=== PATIENT | female | born 1985 | race Hispanic/Latino ===

== ENCOUNTER 2019-04-22 00:48 | Emergency (ER) | payer OTHER ==
--- OUTSIDE RECORDS SUMMARY | 2019-04-22 00:51 | XMS REPORT ---
:1985 [facility] Address [address] [place] [address] Dr. Dixon [address] [place] [id number] Care Team Providers Name Role Phone Unavailable Unavailable Unavailable Problems This patient has no known problems. Allergies, Adverse Reactions, Alerts This patient has no known allergies or adverse reactions. Medications This patient has no known medications.
[2019-04-22 02:47] LABS: Urine Blood 3+ (NEG); Urine Glucose NEGATIVE (NEG); Urine Protein 2+ (NEG)
[2019-04-22 02:50] LABS: Absolute Lymphocytes (CBC) 2.6 K/uL (0.7-4.9); Basophils % 0.4 % (0-1.3); Hematocrit 41.2 % (36.0-45.0); Lymphocytes % 22.5 % (15.3-44.8); RBC Red Blood Cell Count 4.68 M/uL (3.86-4.86)
[2019-04-22 03:25] LABS: BUN Blood Urea Nitrogen 11 mg/dL (7-18); Bicarbonate 26 mmol/L (21-32); Glucose Level 104 mg/dL (74-106); HCG, Quantitative 6920 mIU/mL (1-3); Potassium 3.7 mmol/L (3.5-5.1); Sodium Level 141 mmol/L (136-145)
--- NOTE | 2019-04-22 04:30 | ER ---
Nurse's Notes [facility] Name: Carmina Terry Age: 34 yrs Sex: Female : 1985 Arrival Date: 04/22/2019 Time: 00:51 Bed 19 Private MD: Diagnosis: Threatened . 1 st trimester Presentation: 04/22 01:10 Presenting complaint: Patient states: "Since 4 days I've been having spotting, then cc3 just tonight I started to have dark red clots and back pain". Transition of care: patient was not received from another setting of care. Onset of symptoms was April 22, 2019. Risk Assessment: Do you want to hurt yourself or someone else? Patient reports no desire to harm self or others. Initial Sepsis Screen: Does the patient meet any 2 criteria? No. Patient's initial sepsis screen is negative. Does the patient have a suspected source of infection? No. Patient's initial sepsis screen is negative. Care prior to arrival: None. 01:10 Method Of Arrival: Ambulatory cc3 01:10 Acuity: ANGELA 3 cc3 Triage Assessment: 01:10 General: Appears in no apparent distress. uncomfortable, Behavior is calm, cooperative, cc3 appropriate for age. Pain: Complains of pain in lower abdomen and back Pain currently is 6 out of 10 on a pain scale. Quality of pain is described as aching. EENT: No signs and/or symptoms were reported regarding the EENT system. Neuro: Level of Consciousness is awake, alert, obeys commands, Oriented to person, place, time, situation, Appropriate for age. Cardiovascular: Denies chest pain, Capillary refill < 3 seconds Patient's skin is warm and dry. Respiratory: Airway is patent Respiratory effort is even, unlabored, Respiratory pattern is regular, symmetrical. GI: Abdomen is round. : Reports vaginal bleeding that is bright red, with clots. Derm: Skin is intact, is healthy with good turgor, Skin is pink, warm \\T\\ dry. normal. Musculoskeletal: Circulation, motion, and sensation intact. Range of motion: intact in all extremities. 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 - Social history:: Smoking status: Patient/guardian denies using tobacco, never smoked. - Ebola Screening: : No symptoms or risks identified at this time. Screenin:10 Abuse screen: Denies threats or abuse. Denies injuries from another. Nutritional cc3 screening: No deficits noted. Tuberculosis screening: No symptoms or risk factors identified. Fall Risk Ambulatory Aid- None/Bed Rest/Nurse Assist (0 pts). Gait- Normal/Bed Rest/Wheelchair (0 pts) Mental Status- Oriented to own ability (0 pts). Assessment: 01:10 General: see triage assessment. cc3 02:18 Reassessment: Patient appears in no apparent distress at this time. Patient and/or cc3 family updated on plan of care and expected duration. Pain level reassessed. Patient is alert, oriented x 3, equal unlabored respirations, skin warm/dry/pink. 03:20 Reassessment: Patient appears in no apparent distress at this time. Patient and/or cc3 family updated on plan of care and expected duration. Pain level reassessed. Patient is alert, oriented x 3, equal unlabored respirations, skin warm/dry/pink. 04:30 Reassessment: Patient appears in no apparent distress at this time. Patient and/or cc3 family updated on plan of care and expected duration. Pain level reassessed. Patient is alert, oriented x 3, equal unlabored respirations, skin warm/dry/pink. Dr. Mcintosh discharged the patient home, no prescription given. IV cannula removed and patient left ER vitally stable and ambulatory with her . No valuables left in the patient's room. Patient denies pain at this time. Patient states feeling better. Patient states symptoms have improved. Vital Signs: 01:10 BP 148 / 87; Pulse 73; Resp 17 S; Temp 98.7(O); Pulse Ox 99% on R/A; Weight 57.15 kg cc3 (R); Height 5 ft. 2 in. (157.48 cm) (R); Pain 6/10; 02:25 BP 138 / 83; Pulse 75; Resp 16 S; Pulse Ox 99% on R/A; cc3 03:13 BP 135 / 79; Pulse 77; Resp 16 S; Pulse Ox 98% on R/A; cc3 04:18 BP 136 / 82; Pulse 71; Resp 17 S; Pulse Ox 99% on R/A; cc3 01:10 Body Mass Index 23.05 (57.15 kg, 157.48 cm) cc3 ED Course: 00:51 Patient arrived in ED. cf2 01:10 Arm band placed on right wrist. Patient notified of wait time. cc3 01:10 Patient has correct armband on for positive identification. Placed in gown. Bed in low cc3 position. Call light in reach. Side rails up X 1. Pulse ox on. NIBP on. 01:57 Deanna Servin is Primary Nurse. cc3 02:02 Abraham Mcintosh MD is Attending Physician. pkl 02:11 Triage completed. cc3 02:35 Inserted saline lock: 20 gauge in left antecubital area, using aseptic technique. Blood cc3 collected. 04:00 Assist provider with pelvic exam: Set up pelvic tray. Performed by Abraham Mcintosh MD Patient cc3 tolerated well. 04:26 Zafar Juan MD is Referral Physician. pkl 04:30 IV discontinued, intact, bleeding controlled, No redness/swelling at site. Pressure cc3 dressing applied. Administered Medications: No medications were administered Outcome: 04:27 Discharge ordered by . pkl 04:30 Discharged to home ambulatory, with family. cc3 04:30 Condition: stable 04:30 Discharge instructions given to patient, Instructed on discharge instructions, follow up and referral plans. Demonstrated understanding of instructions, follow-up care. 04:34 Patient left the ED. cc3 Signatures: Abraham Mcintosh MD MD pkl Deanna Servin cc3 David Braswell cf2
--- NOTE | 2019-04-22 04:31 | EDPHYS ---
Physician Documentation [facility] Name: Carmina Terry Age: 34 yrs Sex: Female : 1985 Arrival Date: 04/22/2019 Time: 00:51 Bed 19 Private MD: ED Physician Abraham Mcintosh HPI: 04/22 04:18 This 34 yrs old Female presents to ER via Ambulatory with complaints of pkl Vaginal Bleeding, Back Pain, blood when urinating. 04:18 The patient presents with vaginal bleeding that is moderate. Onset: The pkl symptoms/episode began/occurred just prior to arrival. Patient saw Dr. Juan last Sunday for vaginal spotting. Had pelvic US done in Dr. Juan office, showed 7 weeks IUP. 04:18 Tonight patient said passing some blood clots.. 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 - Social history:: Smoking status: Patient/guardian denies using tobacco, never smoked. - Ebola Screening: : No symptoms or risks identified at this time. ROS: 04:18 Positive for vaginal bleeding. pkl 04:18 Eyes: Negative for injury, pain, redness, and discharge, ENT: Negative for injury, pain, and discharge, Neck: Negative for injury, pain, and swelling, Cardiovascular: Negative for chest pain, palpitations, and edema, Respiratory: Negative for shortness of breath, cough, wheezing, and pleuritic chest pain, Abdomen/GI: Negative for abdominal pain, nausea, vomiting, diarrhea, and constipation, Back: Negative for injury and pain, MS/Extremity: Negative for injury and deformity, Skin: Negative for injury, rash, and discoloration, Neuro: Negative for headache, weakness, numbness, tingling, and seizure. Exam: 04:18 Head/Face: Normocephalic, atraumatic. Eyes: Pupils equal round and reactive to light, pkl extra-ocular motions intact. Lids and lashes normal. Conjunctiva and sclera are non-icteric and not injected. Cornea within normal limits. Periorbital areas with no swelling, redness, or edema. ENT: Nares patent. No nasal discharge, no septal abnormalities noted. Tympanic membranes are normal and external auditory canals are clear. Oropharynx with no redness, swelling, or masses, exudates, or evidence of obstruction, uvula midline. Mucous membranes moist. Neck: Trachea midline, no thyromegaly or masses palpated, and no cervical lymphadenopathy. Supple, full range of motion without nuchal rigidity, or vertebral point tenderness. No Meningismus. Chest/axilla: Normal chest wall appearance and motion. Nontender with no deformity. No lesions are appreciated. Cardiovascular: Regular rate and rhythm with a normal S1 and S2. No gallops, murmurs, or rubs. Normal PMI, no JVD. No pulse deficits. Respiratory: Lungs have equal breath sounds bilaterally, clear to auscultation and percussion. No rales, rhonchi or wheezes noted. No increased work of breathing, no retractions or nasal flaring. Abdomen/GI: Soft, non-tender, with normal bowel sounds. No distension or tympany. No guarding or rebound. No evidence of tenderness throughout. Back: No spinal tenderness. No costovertebral tenderness. Full range of motion. 04:18 : Pelvic Exam: Speculum exam: mild bleeding, os that is closed, a female trim sawyer was present for the exam. 04:18 Musculoskeletal/extremity: Exam is negative for acute changes. 04:18 Skin: Exam negative for rash. 04:18 Neuro: Orientation: is normal, Mentation: is normal, Cranial nerves: grossly normal, Motor: is normal, Gait: is steady. Vital Signs: 01:10 BP 148 / 87; Pulse 73; Resp 17 S; Temp 98.7(O); Pulse Ox 99% on R/A; Weight 57.15 kg cc3 (R); Height 5 ft. 2 in. (157.48 cm) (R); Pain 6/10; 02:25 BP 138 / 83; Pulse 75; Resp 16 S; Pulse Ox 99% on R/A; cc3 03:13 BP 135 / 79; Pulse 77; Resp 16 S; Pulse Ox 98% on R/A; cc3 04:18 BP 136 / 82; Pulse 71; Resp 17 S; Pulse Ox 99% on R/A; cc3 01:10 Body Mass Index 23.05 (57.15 kg, 157.48 cm) cc3 MDM: 02:02 Patient medically screened. pkl 04:18 Data reviewed: vital signs, nurses notes, lab test result(s). pkl 04/22 02:23 Order name: CBC with Diff pkl 04/22 02:23 Order name: Chem 7; Complete Time: 04:34 pkl 04/22 02:23 Order name: Rh Typing; Complete Time: 03:11 pkl 04/22 02:23 Order name: Quantitative Hcg; Complete Time: 04:34 pkl 04/22 02:29 Order name: Urine Dipstick--Ancillary (enter results); Complete Time: 02:50 ag4 04/22 02:29 Order name: Urine --Ancillary (enter results); Complete Time: 02:50 ag4 Administered Medications: No medications were administered Disposition: 04/22/19 04:27 Discharged to Home. Impression: Threatened . 1 st trimester . - Condition is Stable. - Work release form, Medication Reconciliation Form, Thank You Letter, Antibiotic Education, Prescription Opioid Use form. - Follow up: Zafar Juan MD; When: Today; Reason: Re-evaluation by your physician. - Problem is new. - Symptoms have improved. Signatures: Dispatcher [employer] EDAbraham Christie MD MD pkDeanna Raymond cc3 Corrections: (The following items were deleted from the chart) 04:34 04:27 04/22/2019 04:27 Discharged to Home. Impression: Threatened . 1 st cc3 trimester . Condition is Stable. Forms are Medication Reconciliation Form, Thank You Letter, Antibiotic Education, Prescription Opioid Use. Follow up: Zafar Juan; When: Today; Reason: Re-evaluation by your physician. Problem is new. Symptoms have improved. pkl
== END 2019-04-22 04:34 | disposition home or self-care (01) ==
LOC: ER 00:48
DX: O20.0 Threatened abortion (principal); Z3A.01 Less than 8 weeks gestation of pregnancy
CPT/HCPCS: 36415; 80048; 81003; 81025; 84702; 85025; 86901; 99284

== ENCOUNTER 2020-09-08 11:20 | Inpatient (IN) | payer OTHER ==
[2020-09-08] MEDS ORDERED: Ringers Lactate 1,000 ML IV PRN (15:12)
[2020-09-08] MEDS ORDERED: miSOPROStoL 100 MCG TAB VAG PRN (15:16)
[2020-09-08] MEDS ORDERED: BUTORPHANOL 1 MG/ML INJ IV PRN (15:21)
[2020-09-08] MEDS ORDERED: PROMETHAZINE INJ 25 MG/ML AMP IM PRN (15:21)
[2020-09-08] MEDS ORDERED: ZOLPIDEM TARTRATE 10 MG TABLET PO PRN (15:21)
--- OUTSIDE RECORDS SUMMARY | 2020-09-08 15:23 | XMS REPORT | Continuity of Care Document ---
:1985 Author Organization [facility] t Address [address] [place] [address] Dr. Dixon [address] [place] [address] Care Team Providers Name Role Phone Jayy BURGOS Attending Clinician Doctor Unassigned, Name Attending Clinician Unavailable Mario PONCE Attending Clinician Problems This patient has no known problems. Allergies, Adverse Reactions, Alerts This patient has no known allergies or adverse reactions. Medications This patient has no known medications. Procedures This patient has no known procedures. Encounters Start End Encounter Admission Attending Care Care Encounter Source Date/Time Date/Time Type Type Clinicians Facility Department ID 2020-06-11 2020-06-11 [id number] 12:08:00 14:37:00 [place] [facility] [id number] [place] [id number] [place] [id number] 2020-06-11 2020-06-11 Orders Doctor MICHAEL [id number] 00:00:00 00:00:00 Only UnassignedCATRACHO [id number] [place] [facility] [id number] 2019-04-15 2019-04-15 [facility] [id number] 00:00:00 00:00:00 Management Elizabeth Sheppard [id number] [place] [id number] [place] [id number] [address] 2019-04-03 2019-04-03 Orders Doctor MICHAEL [id number] 00:00:00 00:00:00 Only Unassigned, [place] [id number] [place] [facility] [id number] 2019-03-21 2019-03-[address] [facility] [id number] 09:12:43 10:17:57 Elizabeth Sheppard [id number] Visit [place] [id number] [facility] [id number] [address] 2019-03-21 2019-03-21 Telephone [facility] [id number] 00:00:00 00:00:00 Elizabeth Sheppard [id number] [place] [id number] [facility] [id number] [address] Results This patient has no known results.
[2020-09-08] MEDS ORDERED: miSOPROStoL 100 MCG TAB ONE (15:44)
[2020-09-08] MEDS ORDERED: Ringers Lactate 1,000 ML IV ONE (15:44)
[2020-09-08] MEDS ORDERED: OXYTOCIN/LR 20 UNIT/1,000 ML BAG IV SCH (16:00)
[2020-09-08] MEDS ORDERED: Ringers Lactate 1,000 ML IV SCH (16:00)
--- NOTE | 2020-09-08 16:30 | RAD REPORT ---
EXAM DESCRIPTION: US - OB Limited - 09/08/2020 4:24 pm CLINICAL HISTORY: check position COMPARISON: OB Complete dated 04/29/2020 FINDINGS: A limited examination was requested by the referring physician. A single cephalic presenti ng gestation is identified.
[2020-09-08 16:46] VITALS: BMI 29.4
[2020-09-08 16:54] LABS: Absolute Lymphocytes (CBC) 2.2 K/uL (0.7-4.9); Basophils % 0.6 % (0-1.3); Hematocrit 37.1 % (36.0-45.0); Lymphocytes % 25.9 % (15.3-44.8); MPV 10.1 fL (7.6-11.3); RBC Red Blood Cell Count 4.25 M/uL (3.86-4.86)
[2020-09-08 16:55] LABS: Urine Appearance CLEAR; Urine Bilirubin NEGATIVE (NEG); Urine Blood TRACE (NEG); Urine Color YELLOW; Urine Glucose NEGATIVE (NEG); Urine Protein TRACE (NEG); Urine Specific Gravity <=1.005 (1.005-1.030); Urine Urobilinogen 0.2 mg/dL (0.2-1.0)
[2020-09-08 17:01] LABS: Urine Microscopic Reflex ORDER UMIC
[2020-09-08 17:20] LABS: Urine Bacteria <20 /HPF (<20); Urine RBC <5 /HPF (NONE SEEN)
--- NOTE | 2020-09-08 18:03 | PREOPHP ---
Date of Admission: 09/08/2020 History Of Present Illness: A 35-year-old, 2, para 0, now at 39 weeks 2 days, followed antep artum and noted to have blood pressure elevation, but preeclamptic workup x2 has been negative for pr otein. She has no edema. She has no LINOLEUM INSTALLER symptoms. Nonetheless, we will watch her blood pressures c arefully during the labor and if she becomes preeclamptic, treat her accordingly with magnesium sulfa te. She is 1 foot 1/2 inch cm. Baby is vertex, but still high at -2 station. We have decided to go as Cytotec 50 mcg half tablets inserted. We will insert 1/2 a tablet every 6 hours if needed up to a total of 3 half tablets and then after an interval of monitoring, we will then start oxytocin tomor row. Full discussion about this in the office on several occasions. The patient is Rh positive, imm une to Rubella. Her genetic testing was negative. Strep testing was negative. COVID test was negat jag. Family History: Negative. Past Surgical History: The patient has had a hemorrhoidectomy in the past. Medications: She has been on vitamins. Social History: Does not smoke. Physical Examination: HEENT: Clear. Pupils equal, round, and reactive to light and accommodation. Conjunctivae well perf used. No oral, lingual, or buccal lesions. Chest and Lungs: Clear. Heart: Without murmurs, thrills, heaves, or rubs. Breasts: Without masses on previous visits. Abdomen: Term size. Baby is vertex, but still high. Assessment And Plan: She knows the chance for is higher with nonfavorable cervix with her b lood pressures and elevated range and basically borderline preeclampsia. I think it is more prudent to proceed with delivery at this point . The patient agrees. NATY/TERESITA Voice ID: [id number]
[2020-09-09 04:37] LABS: RPR (Rapid Plasma Reagin) NON-REACT (NON-REACT)
--- NOTE | 2020-09-09 08:16 | PN ---
After second dose of Cytotec, the patient experienced spontaneous rupture of membranes, clear fluid. She has had 1 dose of Stadol 1 mg IV, Phenergan 25 mg IM, is coping very well, carrillo regularly , is on Pitocin at this point approximately 8 milliunits. She is approximately 3 cm, 70% to 80% effa swetha, vertex, -1 station. I think the baby is occiput posterior. She is not having back pain, but it is suggest that she do pelvic rocks. We should get into a more active labor pattern here soon. Miya l discussion with the patient. Blood pressures are fluctuating, but generally are in a reasonable ra nge. Urine was negative to trace on protein. Reflexes are normal. We will hold off on any magnesiu m sulfate at this point. NATY/CRL Voice ID: [id number] Report ID: [id number]
[2020-09-09 09:26] LABS: Urine Appearance CLOUDY; Urine Color YELLOW; Urine Glucose NEGATIVE (NEG)
[2020-09-09 09:27] LABS: Urine Bilirubin ND (NEG); Urine Blood 3+ (NEG)
[2020-09-09 09:28] LABS: Urine Protein 2+ (NEG)
[2020-09-09 09:30] LABS: Urine Bacteria <20 /HPF (<20); Urine Mucus 2+ /HPF (NONE SEEN)
[2020-09-09] MEDS ORDERED: MAGNESIUM SULF/STERILE WATER 1,000 ML IV ONE (09:49)
--- NOTE | 2020-09-09 11:16 | PN ---
The patient is on 18 milliunits of Pitocin, carrillo regularly. Baby looks good. She preeclampsi a, +2 protein, elevated blood pressures. She has been given 4 g of mag sulfate loading dose, 2 g an hour maintenance dose. She is under exceptionally good control. Has not had her epidural at this po int, nor is she asking for it. The patient has now progressed to 4 cm, 70%, definite improvement sin ce the last exam. Hopefully, we will start seeing more rapid progress. Full discussion with patient and significant other. NATY/TERESITA Voice ID: [id number] Report ID: [id number]
--- NOTE | 2020-09-09 13:55 | PN ---
The patient is on 20 milliunits of Pitocin, carrillo regularly. Baby looks good. Vital signs hav e moderated. Her blood pressures are running in the upper 140s. She has made no cervical change. T he baby is still posterior even with pelvic rocks and her anterior lip of the cervix is starting to b ecome somewhat edematous. We will give her at least another hour and check, but if she makes no prog ress in the next 1-2 hours, we need to consider , although it is not a large baby. I think t he position is the problem. She agrees and is doing quite well with her breathing techniques. NBC/MODL Voice ID: [id number] Report ID: [id number]
[2020-09-09] MEDS ORDERED: NA CIT/CITRIC AC 30 ML ORAL UDC ONE (15:50)
[2020-09-09] MEDS ORDERED: FAMOTIDINE 20 MG/2 ML VIAL IV ONE (15:51)
[2020-09-09] MEDS ORDERED: METOCLOPRAMIDE 10 MG/2mL INJ ONE (15:52)
[2020-09-09] MEDS ORDERED: CEFAZOLIN/SWI 2gm 2 GM/20 ML SYR ONE (15:52)
--- NOTE | 2020-09-09 15:55 | PN ---
The patient has had made absolutely no change in her cervix over the last 3 hours or so. She is on 2 0 milliunits of Pitocin, carrillo every minute and half to 2 minutes. Baby looks good. Blood pre ssures are increasing 172 over about 92 on the last blood pressure. I have ordered Apresoline 5 mg I V. She has decided to proceed with a section. We have discussed infection, blood loss, ane sthetic complications. Anesthesia and surgical corsetier are being notified at this time and we are preparing for expeditious delivery. NATY/TERESITA Voice ID: [id number] Report ID: [id number]
[2020-09-09] MEDS ORDERED: LABETALOL HCL 100 MG/20 ML ONE (15:58)
[2020-09-09] MEDS ORDERED: LABETALOL 20 MG/4ML SYRINGE IV ONE (16:00)
[2020-09-09] MEDS ORDERED: Ringers Lactate 1,000 ML IV ONE (16:17)
[2020-09-09] MEDS ORDERED: MORPHINE SULFATE/PF 1 MG/ML (10 ML AMP) ONE (16:24)
[2020-09-09] MEDS ORDERED: BUPIVACAINE 0.75% (PF) 2 ML SP ONE (16:24)
[2020-09-09] MEDS ORDERED: LIDOCAINE 1% MPF 5 ML VIAL ONE (16:32)
[2020-09-09] MEDS ORDERED: OXYTOCIN 10 UNIT/ML ML IV ONE (16:47)
[2020-09-09] MEDS ORDERED: DIPHENHYDRAMINE 25 MG TAB/CAP PO PRN (17:09)
[2020-09-09] MEDS ORDERED: ONDANSETRON 4 MG (ODT) TAB PO PRN (17:09)
[2020-09-09] MEDS ORDERED: BISACODYL 10 MG RECTAL SUPP PR PRN (17:09)
[2020-09-09] MEDS ORDERED: Oxycodone HCl/Acetaminophen 1 TAB TAB PO PRN (17:09)
[2020-09-09] MEDS ORDERED: ONDANSETRON 4 MG/2 ML VIAL IV PRN (17:09)
[2020-09-09] MEDS ORDERED: ACETAMINOPHEN 500 MG TAB PO PRN ×2 (17:09)
[2020-09-09] MEDS ORDERED: CEFAZOLIN/SWI 1gm 1 GM/10 ML SYR IVP ONE (17:30)
--- NOTE | 2020-09-09 17:53 | OP ---
Surgeon: Zafar Juan MD Anesthesiologist: Dr. Kirk. Indications: A 35-year-old, 2, para 0, at 39 weeks 3 days, followed antepartum, noted to hav e blood pressure elevation in the last part of the , but never developed. Full-blown preecl ampsia until she got in labor. Had Cytotec inserted last night, on the second dose afterwards. Rupt ure of membranes occurred spontaneously, clear fluid. This morning, she was approximately 3 cm, prog ressed about 5 cm and then showed no progress thereafter. Baby was straight, occiput posterior. She was on 20 milliunits of Pitocin. Had 1 mg of Stadol, 25 mg of Phenergan during the labor. After ap proximately 3 hours, no progress. It was decided to proceed with primary section. Infectio n; blood loss; anesthetic complications; injury to bladder, bowel, ureter; postoperative complication s; clots in legs and pneumonia were discussed. The patient knows fully well it does not constitute a ll the possible problems that could occur during or following surgery. 10 mg of labetalol was given IV prior to the procedure as her blood pressure was reached to 175/92 range. This caused her blood p ressure to return into the 140 range. Anesthesia: Spinal block anesthesia. Dock Superintendent Surgeon: Dr. Hernandes. Description Of Procedure: After prepping and draping, time-out was performed. Pfannenstiel incision was created. Incision was carried to the fascia. The fascia was incised and incision carried trans versely bilaterally. Anterior and posterior fascial planes were developed with both blunt and sharp dissection. Underlying rectus muscle . Peritoneum entered bluntly. Low transverse bladder flap developed. Low transverse uterine incision created. A 7 pounds 9 ounces male infant delivered from occiput posterior position, Apgars 9 and 9. Cord blood specimen obtained. Placenta removed ma nually. Uterus cleared of clot and blood. Mildly hypotonic. Hemabate IM given as well as IV drip P itocin and massage. Estimated blood loss only about 850-900 cc. The patient was noted to have small uterine fibroids studding the anterior surface of the uterus, nothing more than 1.5 cm. Uterus was closed with a running locked stitch of 1 chromic. Gutters cleared of clot and blood. Uterus replace d in the peritoneal cavity, showed much better tone. Inspection of suture line showed no further ble eding. The muscles were reapproximated using interrupted sutures of 0 Vicryl x3. The fascia was taryn sed using 1 Vicryl running from either angle to the midline. A 2-0 plain was used to close the subcu taneous tissue and roman for the skin. The patient had been given 2 g of Ancef prior to the proced ure. Magnesium sulfate had been discontinued prior to the procedure. The patient transferred back t o her room in good condition. We will restart the magnesium sulfate and continue until she begins to diurese, treat her blood pressure as needed. Right now, her blood pressure is quite good because of the spinal block, but I anticipate that will wear off and her blood pressures will probably increase . She will get another 2 g of Ancef 8 hours postop. We will get a magnesium level and blood count a t midnight tonight. Right now, though she is quite stable and doing quite well. Final Diagnoses: Term intrauterine , severe preeclampsia, failure to progress in labor, [facility] section, spinal block anesthesia, mild uterine hypertonus, uterine fibroids. NATY/MODL Voice ID: [id number] Report ID: [id number]
[2020-09-09] MEDS ORDERED: D5LR 1,000 ML with OXYTOCIN 20 UNIT IV SCH ×2 (18:00)
[2020-09-09] MEDS ORDERED: OXYTOCIN/LR 20 UNIT/1,000 ML BAG IV SCH (18:00)
[2020-09-09] MEDS ORDERED: CEFAZOLIN/SWI 2gm 2 GM/20 ML SYR IV ONE (19:30)
[2020-09-09] MEDS ORDERED: LABETALOL 20 MG/4ML SYRINGE IV PRN (19:30)
[2020-09-10] MEDS: KETOROLAC 30 MG/ML INJ IM PRN ×2 (00:30→08:57)
[2020-09-10] MEDS ORDERED: CEFAZOLIN 2 GM in NA CHLORIDE 0.9% 100 ML IVPB ONE (00:30)
[2020-09-10] MEDS ORDERED: NA CHLORIDE 0.9% 100 ML ONE (00:39)
[2020-09-10] MEDS ORDERED: CEFAZOLIN SODIUM 1 GM/VIAL ONE ×2 (00:39→00:41)
[2020-09-10] MEDS ORDERED: MAGNESIUM SULF/STERILE WATER 1,000 ML IV ONE (04:50)
--- NOTE | 2020-09-10 07:46 | PN ---
The patient is doing well postop. Blood pressures have moderated. She has not started diuresing at this point. Magnesium sulfate is continuing. Last level was within normal range. H and H with mini mal change, pre and postop. We will continue to monitor until diuresis begins then stop the magnesiu m sulfate and switch her to phenobarbital. No complaints or problems this morning. Full discussion with the patient. NATY/TERESITA Voice ID: [id number] Report ID: [id number]
[2020-09-10] MEDS: PHENOBARBITAL 32.4 MG TABLET PO SCH ×2 (13:18→21:20)
[2020-09-10 13:37] VITALS: O2SAT 94
[2020-09-10] MEDS: Oxycodone HCl/Acetaminophen 1 TAB TAB PO PRN ×2 (15:25→19:30)
[2020-09-10] MEDS ORDERED: MAGNESIUM HYDROXIDE 8% 30 ML PO PRN (17:09)
[2020-09-10] MEDS: IBUPROFEN 600 MG TAB PO PRN (21:24)
[2020-09-11] MEDS: PHENOBARBITAL 32.4 MG TABLET PO SCH ×2 (05:30→12:48)
[2020-09-11] MEDS: Oxycodone HCl/Acetaminophen 1 TAB TAB PO PRN (07:45)
--- NOTE | 2020-09-11 08:30 | DS ---
This is a 35-year-old 2, para 0, at 39 weeks 3 days, followed antepartum with blood pressure elevations, but until the labor, no signs of true preeclampsia, was evaluated in Labor and delivery o n 2 occasions for preeclampsia and testing was negative. However, on admission and during labor, blo od pressures increased, protein 1 to +2. She had only trace edema but was deemed preeclamptic and st arted on magnesium sulfate. She progressed to approximately 5 cm and then experienced secondary arre st of labor probably because of occiput posterior position of the baby. She was taken to surgery. P rimary section was performed under spinal block anesthesia with delivery of a 7 pounds 9 oun mckenna male , Apgars 9 and 9, mild uterine hypertonus, 850-900 cc blood loss. IV drip Pitocin, ma ssage and Hemabate given at that time. The patient was also noted to have numerous small fibroids on the anterior surface of the uterus. Ancef used for prophylaxis. , the patient is afebril e, ambulating, voiding. Lochia is normal. Her blood pressures have been labile, looked like they ar e getting better and now are starting to creep back up. The last two have been in the 160 range syst olic. She has no QUALITY CHECKER symptoms. We will observe the patient until this afternoon when 48 hours posto perative. At that point, she will be dismissed. Call my office on Sunday. She takes her on blood p ressures at home and will continue to do so and call Labor and Delivery if she has any problems. She will be dismissed with tramadol for analgesia, phenobarbital 60 mg to be taken 3 times a day for 4 d ays and Aldomet to be taken 250 mg 3 times a day for the next 10 days. Whether or not she will need blood pressure medicine in the future, we will see. Tdap and flu shots discussed. No post spinal bl ock problems. The patient is Rh positive, immune to rubella, negative strep. Negative COVID. Final Diagnoses: Term intrauterine 39 weeks 3 days, failure to progress in labor, primary section, mild uterine hypertonus, severe preeclampsia, now resolving, small uterine fibroids. NATY/CRL Voice ID: [id number] Report ID: [id number]
[2020-09-11] MEDS ORDERED: Tdap (Diph,Pertuss(Acell),Tet Vac) 0.5 ML SYR IMVAC ONE (11:35)
[2020-09-11] MEDS: IBUPROFEN 600 MG TAB PO PRN (13:29)
[2020-09-11 13:53] VITALS: BP 154/81
[2020-09-11 16:27] VITALS: TEMP 99.2
--- NOTE | 2020-09-12 08:01 | DS ---
Date of Discharge: 09/11/2020 Addendum: Final Diagnoses: Term intrauterine at 39 weeks 3 days, failure to progress in labor, prima ry section, mild uterine hypotonus, severe preeclampsia, and uterine fibroids. NATY/TERESITA Voice ID: [id number] Report ID: [id number]
[2020-09-13 02:42] LABS: HBsAG Nonreactive (Nonreactive)
== END 2020-09-11 15:00 | disposition home or self-care (01) | DRG 788 ==
LOC: 2ND-WC 15:07
PROVIDERS: ADMIT Specialist; ATTEND Specialist
PROC: 3E0D7GC Introduction of Other Therapeutic Substance into Mouth and Pharynx, Via Natural or Artificial Opening (ICD-10-PCS; 2020-09-09)
PROC: 10D00Z1 Extraction of Products of Conception, Low, Open Approach (ICD-10-PCS; principal; 2020-09-09 16:00)
DX: O14.14 Severe pre-eclampsia complicating childbirth (principal); O62.0 Primary inadequate contractions; O62.4 Hypertonic, incoordinate, and prolonged uterine contractions; O34.13 Maternal care for benign tumor of corpus uteri, third trimester; D25.9 Leiomyoma of uterus, unspecified; Z3A.39 39 weeks gestation of pregnancy; Z37.0 Single live birth; Z20.822 Contact with and (suspected) exposure to COVID-19
CPT/HCPCS: 36415; 76815; 81001; 81003; 81015; 83735; 85014; 85025; 86592; 86901; 87086; 87088; 87340; 88307; 90471; 90715; J0595; J0690; J2550; J2590; J2765; J3475; J7120; J7121; U0003